=== PATIENT | male | born 1960 | race Caucasian/White ===

== ENCOUNTER → 2017-10-15 | Outpatient (CLI) | payer BC ==
[~2017-10-15] MED LIST: VIAGRA50 MG PO; ZOFRAN8 MG PO
== END ==
LOC: COL.RAD 09:40
DX: R93.0 Abnormal findings on diagnostic imaging of skull and head, not elsewhere classified (principal); R42 Dizziness and giddiness
CPT/HCPCS: A9585

== ENCOUNTER → 2022-06-02 | Outpatient (CLI) | payer BC | LOC: COL.RAD 13:28 | DX: M19.011 Primary osteoarthritis, right shoulder (principal) | CPT/HCPCS: A9585; J3301; Q9967 ==

== ENCOUNTER → 2022-06-21 | Outpatient (CLI) | payer BC | LOC: COL.RAD 15:31 | DX: M19.011 Primary osteoarthritis, right shoulder (principal); M19.012 Primary osteoarthritis, left shoulder ==

== ENCOUNTER 2023-12-01 17:20 | Emergency (ER) | payer BC ==
[~2023-12-01] VITALS: Ht 193 cm; Wt 84.1 kg
[2023-12-01] MEDS ORDERED: Home HYDROcodone/Acetaminophen 5/325 MG #4 TABS/PACK PO ONE (19:30)
[2023-12-01] MEDS ORDERED: NORCO 325 MG-51 TAB PO (19:31)
[2023-12-01] MEDS ORDERED: AMOXICILLIN 8751 TAB PO (19:38)
[2023-12-01 19:44] VITALS: BP 135/84; PULSE 77; TEMP 97.6
[2023-12-02] MEDS ORDERED: AMOXICILLIN 8751 TAB PO (10:44)
== END 2023-12-01 19:46 | disposition home or self-care (01) ==
LOC: COL.ER 17:20
DX: S06.0XAA Concussion with loss of consciousness status unknown, initial encounter (principal); S02.40EA Zygomatic fracture, right side, initial encounter for closed fracture; S02.40CA Maxillary fracture, right side, initial encounter for closed fracture; S01.511A Laceration without foreign body of lip, initial encounter; X58.XXXA Exposure to other specified factors, initial encounter